=== PATIENT | female | born 1965 | race Caucasian/White ===

== ENCOUNTER → 2020-10-30 | Outpatient (CLI) | payer OTHER ==
[~2020-10-30] MED LIST: BACTRIM DS TAB1 EACH PO
== END ==
LOC: RAD 16:52
PROVIDERS: Internal Medicine
DX: M05.79 Rheumatoid arthritis with rheumatoid factor of multiple sites without organ or systems involvement (principal); M18.0 Bilateral primary osteoarthritis of first carpometacarpal joints; M19.042 Primary osteoarthritis, left hand; M19.041 Primary osteoarthritis, right hand
CPT/HCPCS: 73130; 85652; 86140

== ENCOUNTER → 2021-06-02 | Outpatient (CLI) | payer OTHER | LOC: SLEEP 21:30 | DX: R53.83 Other fatigue (principal); E03.8 Other specified hypothyroidism; G47.33 Obstructive sleep apnea (adult) (pediatric) | CPT/HCPCS: 95810 ==